=== PATIENT | male | born 1985 | race American Indian/Alaskan Native ===

== ENCOUNTER 2019-12-13 20:02 | Emergency (ER) | payer OTHER, MEDICAID ==
[2019-12-13 20:38] LABS: ANION GAP 13.4 mEq/L (7-13); CHLORIDE,CL 105 mmol/L (98-107); SODIUM,NA 142 mmol/L (136-145)
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
[2019-12-13 21:11] LABS: PTT,PARTIAL THROMBOPLSTIN TIME 22.3 SEC (22.0-34.0)
[2019-12-13] MEDS ORDERED: Iopamidol 612 MG/ML 100 ML Bottle IVPUSH ONE (22:07)
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
== END 2019-12-14 00:23 ==
LOC: DL.ED 20:02
DX: S92.014 Nondisplaced fracture of body of right calcaneus (principal); S82.891B Other fracture of right lower leg, initial encounter for open fracture type I or II; Z20.828 Contact with and (suspected) exposure to other viral communicable diseases; V87.7XXA Person injured in collision between other specified motor vehicles (traffic), initial encounter
CPT/HCPCS: 36415; 70450; 71260; 72125; 73590; 73630; 74177; 80053; 80305; 80307; 81001; 85025; 85610; 85730; 86850; 86900; 86901; 87635; 99285; Q9967; U0002